=== PATIENT | female | born 1975 | race Caucasian/White ===

== ENCOUNTER 2016-06-28 08:41 | Emergency (ER) | payer BC, OTHER ==
[2016-06-28 09:07] VITALS: BP 118/79; PULSE 81; RESP 20; TEMP 98.4; O2SAT 95
--- NOTE | 2016-06-28 09:23 | UCPHY ---
H & P Time Seen by Provider: 06/28/16 09:05 Patient Type: Established HPI/ROS: This patient has a cough. She reports associated feeling of chest congestion. She notices mild wheezing and dyspnea with exertion since the cough started approximately 1 week prior to arrival. She reports that the nature of the cough primarily hacking dry cough occasionally she has mild sputum production. The sputum appears clear. She has associated nasal congestion. ROS: No high fevers or chills. No other constitutional symptoms. HEENT: No sinus pressure. She has a mild sore throat when she coughs. She denies any ear pain. Pulmonary: No pleuritic pain or respiratory distress. Cardiovascular: No lightheadedness. No heart palpitations. Integumentary: No skin rash. 7 point ROS is otherwise negative. Past Medical/Surgical History: Otherwise healthy Smoking Status: Former smoker Physical Exam: Physical Exam Vital signs are normal. General: No acute distress HEENT: Nose: Clear discharge. No sinus tenderness to percussion. Ears: External canals TMs clear bilaterally. Oropharynx is clear with no erythema or exudates. Eyes: Pupils equal and react to light. Extraocular motions are intact. Neck: Supple with no meningismus. Lungs: Clear to auscultation with the exception of faint expiratory wheeze. No rales or rhonchi. No respiratory distress. Cardiac: Regular rate and rhythm with no murmur gallop or rub Skin: No rash or pallor. Extremities: No calf swelling or tenderness. Neuro: Alert and oriented with no sensorimotor deficits. Differential diagnosis: Viral bronchitis versus bacterial bronchitis doubt pneumonia. Constitutional: Initial Vital Signs Temperature (C) 36.9 C 06/28/16 08:45 Heart Rate 81 06/28/16 08:45 Respiratory Rate 20 06/28/16 08:45 Blood Pressure 118/79 06/28/16 08:45 O2 Sat (%) 95 06/28/16 08:45 O2 Delivery Mode Room Air Allergies/Adverse Reactions: hydrocodone bitartrate [From Vicodin] Allergy (Intermediate, Verified 06/28/16 09:07) Hives Home Medications: Medication Instructions Recorded ALPRAZolam [Xanax] 0.5 mg PO TID #20 tab 10/09/15 Microgestin 10/09/15 Sertraline HCl 10/09/15 Albuterol Hfa Anes Only [Proair 2 puffs IH Q4 PRN #1 mdi 06/28/16 Hfa Icu (*)] Fluticasone Hfa 220 Mcg [Flovent 2 puffs IH DAILY #1 mdi 06/28/16 220 MCG Hfa MDI (*)] MDM/Departure - MDM ED Course/Re-evaluation: This patient appears well without clinical findings to suggest a lower respiratory infection or other complicating factors. Counseled regarding viral bronchitis. - Depart Disposition: Home, Routine, Self-Care Clinical Impression: Viral bronchitis Condition: Good Instructions: Acute Bronchitis (ED) Additional Instructions: Diagnosis: Viral bronchitis Plan: Humidifier Albuterol inhaler with spacer for cough, wheeze or shortness of breath If her cough does not resolve with this treatment plan alone at the Flovent steroid inhaler in addition Return for any significant worsening despite the treatment plan. Stand Alone Forms: Work Excuse Prescriptions: Albuterol Hfa Anes Only [Proair Hfa Icu (*)] 2 puffs IH Q4 PRN #1 mdi PRN Reason: Wheezing Fluticasone Hfa 220 Mcg [Flovent 220 MCG Hfa MDI (*)] 2 puffs IH DAILY #1 mdi Referrals: Judy Gooden MD [Primary Care Provider] - As per Instructions - PQRS PQRS Measurement: NA
== END 2016-06-28 09:45 | disposition home or self-care (01) ==
LOC: CED 08:41 → MERGE 08:41 → CED 09:45
DX: J20.8 Acute bronchitis due to other specified organisms (principal); Z87.891 Personal history of nicotine dependence
CPT/HCPCS: 99214-PO; G0463-PO

== ENCOUNTER 2017-08-17 12:52 | Emergency (ER) | payer OTHER ==
[2017-08-17 13:11] VITALS: BP 167/73
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
== END 2017-08-17 13:50 | disposition home or self-care (01) ==
LOC: CED 12:52
DX: S16.1XXA Strain of muscle, fascia and tendon at neck level, initial encounter (principal); Z87.891 Personal history of nicotine dependence; V49.50XA Passenger injured in collision with unspecified motor vehicles in traffic accident, initial encounter; Y92.410 Unspecified street and highway as the place of occurrence of the external cause

== ENCOUNTER 2017-08-18 11:51 | Emergency (ER) | payer OTHER ==
[2017-08-18] MEDS ORDERED: KETOROLAC 30 MG/1 ML SDV IM ONE (12:22)
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
[2017-08-18 13:08] VITALS: BP 117/69
== END 2017-08-18 13:05 | disposition home or self-care (01) ==
LOC: CED 11:51
DX: S39.012A Strain of muscle, fascia and tendon of lower back, initial encounter (principal); S16.1XXA Strain of muscle, fascia and tendon at neck level, initial encounter; V49.40XA Driver injured in collision with unspecified motor vehicles in traffic accident, initial encounter; Y92.410 Unspecified street and highway as the place of occurrence of the external cause; Y99.8 Other external cause status; Y93.89 Activity, other specified
CPT/HCPCS: J1885